=== PATIENT | female | born 1980 | race Caucasian/White ===

== ENCOUNTER 2025-06-15 12:14 | Outpatient (REF) | payer OTHER, SELFPAY ==
--- NOTE | ~2025-06-15 | XR_ITS ---
CLINICAL HISTORY: PAIN IN LEFT HIP 3 view, pelvis and left hip Comparison: None provided Findings: Postoperative changes of the Lumbosacral spine. Mild degenerative changes of both hips. The soft tissues are unremarkable. Phleboliths project over the pelvis. IMPRESSION: Mild degenerative changes of both hips. This document has been electronically signed by: Dedrick Beck DO on 06/15/2025 14:01:07
--- OUTSIDE RECORDS SUMMARY | 2025-06-15 12:19 | XMS_ITS ---
Author Name [facility] Organization Unknown History of Medication Use Medication Directions Dispensed Refills Start Date End Date Stat us baclofen (LIORESAL) 10 mg tablet Insert one tablet into the vagina every 8 hours as needed for pelvic floor muscle spasm. 02/08/2025 active DULoxetine (CYMBALTA) [address] capsule Take 1 capsule (20 mg total) by mouth 1 (one) time each day. 11/29/2024 active Zepbound 12.5 mg/0.5 mL injection 10/05/2024 active oxyCODONE (ROXICODONE) 5 mg immediate release tablet Take 1 tablet (5 mg total) by mouth every 6 (six) hours if needed. 08/05/2023 active albuterol HFA (PROAIR HFA ; PROVENTIL HFA ; VENTOLIN HFA) 90 mcg/actuation inhaler Inhale 2 Puffs into the lungs every 6 hours as needed for Cough or Wheezing. 10/10/2019 active acyclovir (ZOVIRAX) 400 mg tablet Take 1 Tab by mouth 3 times daily. 02/25/2019 active cyclobenzaprine (FLEXERIL) 5 mg tablet Take 1 tablet (5 mg total) by mouth 1 (one) time each day. active gabapentin (NEURONTIN) 600 mg tablet Take 1 tablet (600 mg total) by mouth 2 (two) times a day. active Allergies Allergen Reaction Severity Comment Documented Date Source Statu s GADOLINIUM-CONTAI KATHARINA CONTRAST MEDIA RUNNY NOSE Dotarem injected pt started sneezing and throat swelling//TR 09/01/2023 [facility] active PENICILLINS RASH 08/15/2019 [facility] active SUMATRIPTAN 07/19/2018 [facility] active CORTISONE ACETATE FLUSHING 09/13/2009 [facility] active PENICILLIN V POTASSIUM 10/27/2005 [facility] active CORTISONE Other Reaction(s): redness and burning face and chest [facility] Problems Problem Status Onset Date Problem Type Date of Resoluti on Source Anemia active 2024-09-05 ProblemAct [facility] Hyperglycemia active 2019-10-10 ProblemAct [facility] Heart murmur active 2018-09-05 ProblemAct [facility] Herpes simplex active 2005-11-05 ProblemAct [facility] Asthma active 2006-11-04 ProblemAct [facility] Vasomotor symptoms due to menopause active 2020-06-28 ProblemAct [facility] Knee pain active 2018-12-08 ProblemAct [facility] Irritable bowel syndrome active 2006-09-17 ProblemAct [facility] Essential thrombocytosis ([facility] V24, [facility] V28) active 2016-06-04 ProblemAct [facility] Bleeding diathesis ([facility] V24) active 2011-02-17 ProblemAct [facility] Migraine without aura active 2012-07-16 ProblemAct [facility] Depression with anxiety active 2008-05-07 ProblemAct [facility] DDD (degenerative disc disease), lumbar active 2017-01-26 ProblemAct [facility] Immunizations Vaccine Date Source Lot Number Status Influenza trivalent, 0.5mL, preservative free (Fluarix; FluLaval; Fluzone) ages 6mo and older (Afluria) 3 years and older 08/09/2013 [facility] [id number] completed Tdap Tetanus diptheria acell ular pertussis (Boostrix; Adacel) 7yo and older 05/07/2008 [facility] [id number] completed
== END 2025-06-15 12:15 | disposition home or self-care (01) ==
LOC: HO.XRAY 12:14
PROVIDERS: Visit Provider Psychiatry & Neurology Neurology
DX: M25.552 Pain in left hip (principal)
CPT/HCPCS: 73502

== ENCOUNTER → 2025-06-15 12:20 | Outpatient (BNV) | payer OTHER, SELFPAY | PROVIDERS: Visit Provider Family Medicine | DX: M16.12 Unilateral primary osteoarthritis, left hip (principal) | CPT/HCPCS: 73502 ==

== ENCOUNTER 2025-07-04 14:24 | Outpatient (REF) | payer OTHER, SELFPAY ==
[2025-07-04 15:33] LABS: Appearance Urine Clear; Glucose Urine UA Negative (Negative); PH 7.0 (5.0-9.0); Specific Gravity - Urine 1.010 (1.005-1.025)
--- OUTSIDE RECORDS SUMMARY | 2025-07-04 16:45 | XMS_ITS | Clinical Summary ---
Author Organization [facility] [address] [facility] Address [address] [place] [phone] Phone Care Team Providers Care Broom Maker Name Role Phone Kanchan Wellington MD Primary Care Provider [phone] Allergies Active Allergy Reactions Criticality Noted Date Comments Cortisone 08/15/2019 Other Reaction(s): redness and burning face and chest Cortisone Acetate Flushing Medium 09/13/2009 Gadolinium-Containing Contrast Media Numbness,Runny nose Medium 09/01/2023 Dotarem injected pt started sneezing and throat swelling//TR Penicillin V Potassium 10/27/2005 Penicillins Rash 08/15/2019 Sumatriptan 07/19/2018 Medications gabapentin (NEURONTIN) 600 mg tablet Take 1 tablet (600 mg total) by mouth 2 (two) times a day. Active oxyCODONE (ROXICODONE) 5 mg immediate release tablet Take 1 tablet (5 mg total) by mouth every 6 (six) hours if needed. 08/05/2023 Active albuterol HFA (PROAIR HFA ; PROVENTIL HFA ; VENTOLIN HFA) 90 mcg/actuation inhaler Inhale 2 Puffs into the lungs every 6 hours as needed for Cough or Wheezing. 10/10/2019 Active acyclovir (ZOVIRAX) 400 mg tablet Take 1 Tab by mouth 3 times daily. 02/25/2019 Active Zepbound 12.5 mg/0.5 mL injection 10/05/2024 Active cyclobenzaprine (FLEXERIL) 5 mg tablet Take 1 tablet (5 mg total) by mouth 1 (one) time each day. Active DULoxetine (CYMBALTA) [address] capsule Take 1 capsule (20 mg total) by mouth 1 (one) time each day. 11/29/2024 Active baclofen (LIORESAL) 10 mg tablet Insert one tablet into the vagina every 8 hours as needed for pelvic floor muscle spasm. 30 each 02/08/2025 Active Active Problems Problem Noted Date Diagnosed Date Anemia 09/05/2024 Vasomotor symptoms due to menopause 06/28/2020 Overview (09/05/2024): Last Assessment & Plan: Continue current patch dose. Can check estradiol level, but explained that there is a significant range of normal and may not be able to tell except that it is normal. Hyperglycemia 10/10/2019 Knee pain 12/08/2018 Heart murmur 09/05/2018 Overview (09/05/2024): found in high school DDD (degenerative disc disease), lumbar 01/27/20 17 Essential thrombocytosis ([facility] V24, [facility] V 28) 06/04/2016 Migraine without aura 07/16/2012 Bleeding diathesis ([facility] V24) 02/17/2011 Depression with anxiety 05/07/2008 Overview (09/05/2024): Last Assessment & Plan: I encouarged Robin to follow up with her psychiatrist and therapist as scheduled. She contracts for safety and currently denies SI, HI. Asthma 11/04/2006 Irritable bowel syndrome 09/17/2006 Herpes simplex 11/05/2005 Overview (09/05/2024): 2002 HSV of skin - on L wrist Encounters Date Type Department Care Team Description 04/14/2025 11:31 AM EDT - 04/14/2025 3:43 PM EDT Emergency [facility] Emergency [address] [place] [id number] Deborah Doyle DO Pyelonephritis (Primary Dx) Discharge Disposition: Home or Self Care 04/12/2025 8:30 AM EDT Treatment Pelvic Floor [address] [phone] Nargis Dalal, PT Pelvic pain (Primary Dx); Constipation, unspecified constipation type; Myalgia of pelvic floor; Muscle spasm; Muscle weakness from Last 3 Months Immunizations Name Administration Dates Next Due Influenza trivalent, 0.5mL, preservative free (Fluarix; FluLaval; Fluzone) ages 6mo and older (Afluria) 3 years and older 08/09/2013 Tdap Tetanus diptheria acell ular pertussis (Boostrix; Adacel) 7yo and older 05/07/2008 Surgical History Surgery Date Site/Laterality Comments VAGINAL DELIVERY PROCEDURE: OH VAGINAL DELIVERY ONLY; COMMENT: x3 CERVICAL BIOPSY W/ LOOP ELECTRODE EXCISION PROCEDURE: CERVIAL LEEP CONE BIOPSY SPCMN PATHOLOGY EX; COMMENT: x3; abnormal cells TUBAL LIGATION 2004 PROCEDURE: HISTORICAL TUBAL LIGATION NASAL SEPTUM SURGERY 1996 PROCEDURE: OH SEPTOPLASTY/SUBMUCOUS RESECJ W/WO CARTILAGE GRF COLONOSCOPY 05/26/2006 PROCEDURE: OH COLONOSCOPY FLX DX W/COLLJ SPEC WHEN PFRMD; COMMENT: Normal TONSILLECTOMY PROCEDURE: HISTORICAL TONSILLECTOMY CHOLECYSTECTOMY PROCEDURE: OH LAPAROSCOPY SURG CHOLECYSTECTOMY HYSTERECTOMY Medical History Medical History Date Comments Placenta previa without hemo rrhage, unspecified as to episode of care 01-15-05 DX:Placenta previa w ithout hemorrhage, unspecified as to episode of care; COMMENT: 14 week u/s Anxiety state, unspecified 04/19/2006 DX:An xiety state, unspecified Irritable bowel syndrome 2005 DX:Irri table bowel syndrome; COMMENT: diagnosed at time of colonoscopy Herpes simplex 11/05/2005 DX:Herpes simple x; COMMENT: 2002 HSV of skin - on L wrist History of herpes zoster 04/15/2015 DX:Hist ory of herpes zoster Heart murmur 09/05/2018 DX:Heart murmur; COMMENT: found in high school DDD (degenerative disc disea se), lumbar 01/26/2017 DX:DDD (degenerative disc di sease), lumbar Asthma 11/04/2006 DX:Asthma Depression with anxiety 05/07/2008 DX:Depre ssion with anxiety Anemia DX:Anemia History of GI bleed 05/26/2006 DX:History o f GI bleed; COMMENT: chronic small volume hematochezia. History of anal fissures. Negative colonoscopy 05.26.06. Essential thrombocytosis (CM S/HCC V24, CMS/HCC V28) 06/04/2016 DX:Essential thrombocytosis (HCC) Family History Medical History Relation Name Comments Ovarian cancer Aunt Coronary artery disease Brother 1 Coronary artery disease Maternal Grandfather Hypertension Maternal Grandfather Other cancer Maternal Grandfather skin ca ncer Colon cancer Maternal Grandmother Colon polyps Mother dx age late 50' s Kidney cancer Mother age 60 Other cancer Paternal Grandmother Breast cancer Neg Hx Relation Name Status Comments Aunt Alive Brother 1 HTN Brother 2 Alive estranged Daughter 1 Alive x3; 2 with asth ma Daughter 2 Alive Daughter 3 Alive Father Alive HTN Maternal Grandfather (Age 85) CA D; AMI; CABG x 4 Maternal Grandmother Colon C A - found at 88yo Mother Alive HTN; hyperchole sterolemia, kidney cancer 2010 age 60 Paternal Grandfather unknown Paternal Grandmother unknown Social History Tobacco Use Types Packs/Day Years Used Date Smoking Tobacco: Former Cigarettes 0.5 26.6 0 11/01/1992 - 2019 Smokeless Tobacco: Never Tobacco Cessation:Counseling Given: Not Answered Alcohol Use Standard Drinks/Week Comments Yes 0 (1 standard drink = 0.6 oz pur e alcohol) rare Comments No Sex and Gender Information Value Date Recorded Sex Assigned at Not on file Legal Sex Female 9:59 AM EST Gender Identity Not on file Sexual Orientation Not on file Obstetrics History * This document contains information received from the source organization and may not represent a complete record from that organization. Para Term AB IAB SAB Ectopic Multiple Livin g Live Births 4 0 0 0 0 0 3 3 Date Outcome GA Total Labor Labor/2nd/3rd Weight Sex Type Anes PTL Nicolle A1 A5 Name Clin 1999 40w 0d 3345 g (118 oz) F Vag-S pont Livin g Yoanna [facility] Delivery Location:[facility] 2003 40w 0d 3487 g (123 oz) F Vag-S pont Livin g Laurel [facility] Delivery Location:[facility] 2004 40w 0d 3799 g (134 oz) F Vag-S pont Livin g Mikayl a Dr[facility] Delivery Location:[facility] Last Filed Vital Signs Vital Sign Reading Time Taken Comments Blood Pressure 130/77 04/14/2025 3:05 PM EDT Pulse 70 04/14/2025 3:05 PM EDT Temperature 36.9 C (98.4 F) 04/14/2025 3:05 PM EDT Respiratory Rate 16 04/14/2025 3:05 PM EDT Oxygen Saturation 100% 04/14/2025 3:05 PM EDT Inhaled Oxygen Concentration - - Weight 57.6 kg (127 lb) 04/14/2025 11:28 AM EDT Height 154.9 cm (5' 1 ) 04/14/2025 11:28 AM EDT Body Mass Index 24 04/14/2025 11:28 AM EDT Plan of Treatment Health Maintenance Due Date Last Done Comments COVID-19 Vaccine (3 - Pfizer risk series) 04/27/2021 03/30/2021, 02/17/2021 Pneumococcal Vaccine: Pediatrics (0 to 5 Years) and At-Risk Patients (6 to 49 Years) (2 of 2 - PCV) 07/03/2021 07/03/2020, 08/10/2016 Colorectal Cancer Screening: Colonoscopy 10/10/2022 Medicare Annual Wellness Visit 10/10/2022 Social Influencers of Health Screening 10/10/2022 Hepatitis B Vaccines (2 of 3 - 19+ 3-dose series) 09/13/2024 08/16/2024 Depression Screening 11/01/2024 Influenza Vaccine (#1) 2025 4, 07/03/2020, 08/10/2016, Additional history exists Breast Cancer Screening 04/25/2026 04/25/20 24, 04/20/2023, 04/15/2022, Additional history exists Cervical Cancer Screening: HPV 12/11/2029 12/11/2024, 11/30/2019 DTaP,Tdap,and Td Vaccines (3 - Td or Tdap) 07/03/2030 07/03/2020, 05/07/2008 HIV Screening Completed 11/30/2019 Hepatitis C Screening Completed 11/30/2019 MMR Vaccines Aged Out 08/16/2024 No longer eligi ble based on patient's age to complete this topic HIB Vaccines Aged Out No longer eligi ble based on patient's age to complete this topic HPV Vaccines Aged Out No longer eligi ble based on patient's age to complete this topic Hepatitis A Vaccines Aged Out No long er eligible based on patient's age to complete this topic IPV Vaccines Aged Out No longer eligi ble based on patient's age to complete this topic Meningococcal ACWY Vaccine Aged Out N o longer eligible based on patient's age to complete this topic Meningococcal B Vaccine Aged Out No l onger eligible based on patient's age to complete this topic RSV Immunization Patients Under 20 months Aged Out No longer eligible based on patient's age to complete this topic Varicella Vaccines Aged Out No longer eligible based on patient's age to complete this topic Procedures Procedure Name Priority Date/Time Associated Diagnosis Comments CT ABDOMEN PELVIS WO CONTRAST STAT 04/14/2025 12:44 PM EDT POC , URINE DIAGNOSTIC STAT 04/14/2025 12:01 PM EDT JACINTO URINE CULTURE TUBE STAT 04/14/2025 11:48 AM EDT URINALYSIS WITH REFLEX MICROSCOPIC AND CULTURE STAT 04/14/2025 11:48 AM EDT URINALYSIS WITH REFLEX MICROSCOPIC AND CULTURE STAT 04/14/2025 11:48 AM EDT CULTURE URINE STAT 04/14/2025 11:48 AM EDT CBC WITH AUTO DIFFERENTIAL STAT 04/14/2025 11:44 AM EDT COMPREHENSIVE METABOLIC PANEL STAT 04/14/2025 11:44 AM EDT CBC AND DIFFERENTIAL STAT 04/14/2025 11:44 AM EDT HPV WITH REFLEX GENOTYPE Routine 12/11/2024 11:18 AM EST Screening for cervical cancer JUANCHO SCREENING DIGITAL Routine 04/25/2024 5:06 PM EDT Encounter for screening mammogram for malignant neoplasm of breast HEPATITIS C SCREENING Routine 11/30/2019 HIV SCREENING Routine 11/30/2019 from Last 3 Months or Most Recently Relevant to Health Maintenance Results * CT Abdomen Pelvis wo Contrast (04/14/2025 12:44 PM EDT) Anatomical Region Laterality Modality Body Computed Tomogra phy 04/14/2025 12:5 9 PM EDT Impressions 04/14/2025 1:06 PM EDT Limited evaluation absence of IV contrast. No acute infectious or inflammatory process. No nephroureteral calculus. Circumferential thickening of the bladder, correlate with urinalysis. -------- FINAL REPORT -------- Dictated By: Fabio Stoll Dictated Date: 04/14/2025 12:59 ET Assigned Physician: Fabio Stoll Reviewed and Electronically Signed By: Fabio Stoll Signed Date: 04/14/2025 13:06 ET Workstation ID: [id number] Transcribed By: Self Edit Transcribed Date: 04/14/2025 12:59 ET Narrative 04/14/2025 1:06 PM EDT PROCEDURE: CT Abdomen and Pelvis without contrast INDICATION: Flank pain, kidney stone suspected left sided flank pain TECHNIQUE: CT of the abdomen and pelvis without contrast. Multiplanar reformats. The examination was performed utilizing dose reduction techniques. DLP: 481 mGy/cm COMPARISON: 11/12/2023 FINDINGS: LOWER THORAX: Lung bases are clear. HEPATOBILIARY: No focal liver lesions. Cholecystectomy. SPLEEN: No splenomegaly. PANCREAS: No focal mass or ductal dilatation. ADRENALS: No nodules. KIDNEYS/URETERS: No hydronephrosis, stones, or solid mass. PELVIC ORGANS/BLADDER: Circumferential thickening of bladder nonspecific but could be related to cystitis. Hysterectomy. PERITONEUM / RETROPERITONEUM: No ascites or free air. No retroperitoneal lymphadenopathy. VESSELS: Scattered atherosclerotic calcifications throughout the aorta and its major branches. No aneurysm. GI TRACT: No bowel distention or wall thickening. Normal appendix. BONES AND SOFT TISSUES: Surgical changes of the lumbar spine. No acute fractures. Soft tissues are unremarkable. Procedure Note Fabio Stoll MD - 06/14/2025 PROCEDURE: CT Abdomen and Pelvis without contrast INDICATION: Flank pain, kidney stone suspected left sided flank pain TECHNIQUE: CT of the abdomen and pelvis without contrast. Multiplanarreformats. The examination was performed utilizing dose reductiontechniques. DLP: 481 mGy/cm COMPARISON: 11/12/2023 FINDINGS: LOWER THORAX: Lung bases are clear. HEPATOBILIARY: No focal liver lesions. Cholecystectomy. SPLEEN: No splenomegaly. PANCREAS: No focal mass or ductal dilatation. ADRENALS: No nodules. KIDNEYS/URETERS: No hydronephrosis, stones, or solid mass. PELVIC ORGANS/BLADDER: Circumferential thickening of bladder nonspecificbut could be related to cystitis. Hysterectomy. PERITONEUM / RETROPERITONEUM: No ascites or free air. No retroperitoneallymphadenopathy. VESSELS: Scattered atherosclerotic calcifications throughout the aorta andits major branches. No aneurysm. GI TRACT: No bowel distention or wall thickening. Normal appendix. BONES AND SOFT TISSUES: Surgical changes of the lumbar spine. No acutefractures. Soft tissues are unremarkable. IMPRESSION: Limited evaluation absence of IV contrast. No acute infectious orinflammatory process. No nephroureteral calculus. Circumferential thickening of the bladder, correlate with urinalysis. -------- FINAL REPORT -------- Dictated By: Fabio Stoll Dictated Date: 04/14/2025 12:59 ET Assigned Physician: Fabio Stoll Reviewed and Electronically Signed By: Fabio Stoll Signed Date: 04/14/2025 13:06 ET Workstation ID: [id number] Transcribed By: Self Edit Transcribed Date: 04/14/2025 12:59 ET us Deborah Doyle DO IMG CT PROCEDURES Final R esult * POC , urine manually resulted (04/14/2025 12:01 PM EDT) HCG, Ur POC Negative Negative POC hCG Int QC Pass? Yes Yes Urine Urine specimen obtained by clean catch procedure / Unknown 04/14/2025 12:01 PM EDT us Deborah Doyle DO POINT OF CARE TEST ENTER/ EDIT ORDERABLES Final Result * (ABNORMAL) Urinalysis with reflex microscopic and culture (04/14/2025 11:48 AM EDT) Specific [place] Urine 1.023 1.003 - 1.030 LAB URINALYSIS - AUTOMATED METHOD 04/14/2025 1:23 PM [facility] pH, Urine 6.0 5.0 - 8.0 pH LAB URINALYSIS - AUTOMATED METHOD 04/14/2025 1:23 PM [facility] Leukocytes, Urine Large(A) Negative LAB URINALYSIS - AUTOMATED METHOD 04/14/2025 1:23 PM [facility] Nitrite, Urine Negative Negative LAB URINALYSIS - AUTOMATED METHOD 04/14/2025 1:23 PM [facility] Protein, Urine 300(A) <=Trace mg/dL LAB URINALYSIS - AUTOMATED METHOD 04/14/2025 1:23 PM [facility] Glucose, Urine Negative Negative mg/dL LAB URINALYSIS - AUTOMATED METHOD 04/14/2025 1:23 PM [facility] Ketones, Urine >=80(A) Negative mg/dL LAB URINALYSIS - AUTOMATED METHOD 04/14/2025 1:23 PM [facility] Urobilinogen , Urine 1.0 0.2 - 1.0 mg/dL LAB URINALYSIS - AUTOMATED METHOD 04/14/2025 1:23 PM [facility] Bilirubin, Urine Small(A) Negative LAB URINALYSIS - AUTOMATED METHOD 04/14/2025 1:23 PM [facility] Blood, Urine Large(A) Negative LAB URINALYSIS - AUTOMATED METHOD 04/14/2025 1:23 PM [facility] RBC, Urine 3,319.1(H) 0 - 4 /HPF LAB URINALYSIS - AUTOMATED METHOD 04/14/2025 1:23 PM [facility] WBC, Urine 2,350.2(H) 0 - 4 /HPF LAB URINALYSIS - AUTOMATED METHOD 04/14/2025 1:23 PM EDT [facility] Squamous Epithelial, Urine 88(H) 0 - 60 /LPF LAB URINALYSIS - AUTOMATED METHOD 04/14/2025 1:23 PM EDT [facility] Non-Squamous Epithelial, Urine 2-5 TRANSITIONAL EPI /LPF LAB URINALYSIS - AUTOMATED METHOD 04/14/2025 1:23 PM EDT [facility] Bacteria, Urine Few(A) Negative /HPF LAB URINALYSIS - AUTOMATED METHOD 04/14/2025 1:23 PM EDT [facility] Hyaline Casts, Urine 3.0 0 - 3 /LPF LAB URINALYSIS - AUTOMATED METHOD 04/14/2025 1:23 PM EDT [facility] Urine Urine specimen obtained by clean catch procedure / Unknown Non-blood Collection / Unknown 04/14/2025 11:48 AM EDT 04/14/2025 12:37 PM EDT us [employer] Tommy Wenceslao [employer] [facility] URINE ORDERABLES Yessy l Result Performing Organization Address [facility]/ZIP Co de Phone Number [facility] [address] [place] [address], [place] [phone] * Jacinto urine culture tube (04/14/2025 11:48 AM EDT) Extra Tube Hold for add-ons. 04/14/2025 2:01 PM EDT [facility] Comment:Auto resulted. Urine Urine specimen obtained by clean catch procedure / Unknown Non-blood Collection / Unknown 04/14/2025 11:48 AM EDT 04/14/2025 12:37 PM EDT us [employer] Tommy Wenceslao [facility] URINE ORDERABLES Yessy l Result Performing Organization Address [facility]/ZIP Co de Phone Number [facility] [address] [place] [address], [place] [phone] * (ABNORMAL) Culture urine (04/14/2025 11:48 AM EDT) Pathologist [facility] Culture, Urine >100,000 CFU/mL Escherichia coli(A) JAIME 04/16/2025 10:11 AM EDT [facility] Urine Urine specimen obtained by clean catch procedure / Unknown Non-blood Collection / Unknown 04/14/2025 11:48 AM EDT 04/14/2025 1:23 PM EDT Narrative Organism Antibiotic Method Susceptibility Escherichia coli Amoxicillin/Clavulanate JAIME <=2 ug/ml: Susceptible Escherichia coli Ampicillin/Sulbactam JAIME <=2 ug/ml: Susceptible Escherichia coli Piperacillin/Tazobactam JAIME <=4 ug/ml: Susceptible Escherichia coli Cefazolin (Urine) JAIME 4 ug/ml: Susceptible Escherichia coli Cefoxitin JAIME <=4 ug/ml: Susceptible Escherichia coli Ceftazidime JAIME <=0.5 ug/ml: Susceptible Escherichia coli Ceftriaxone JAIME <=0.25 ug/ml: Susceptible Escherichia coli Cefepime JAIME <=0.12 ug/ml: Susceptible Escherichia coli Meropenem JAIME <=0.25 ug/ml: Susceptible Escherichia coli Amikacin JAIME 2 ug/ml: Susceptible Escherichia coli Gentamicin JAIME <=1 ug/ml: Susceptible Escherichia coli Ciprofloxacin JAIME <=0.06 ug/ml: Susceptible Escherichia coli Levofloxacin JAIME <=0.12 ug/ml: Susceptible Escherichia coli Nitrofurantoin JAIME <=16 ug/ml: Susceptible Escherichia coli Trimethoprim/Sulfamethoxazole JAIME <=20 ug/ml: Susceptible us Deborah Doyle DO LAB MICROBIOLOGY - GENERA L ORDERABLES Final Result [facility] [address] [place] [address], [place] [phone] * (ABNORMAL) CBC auto differential (04/14/2025 11:44 AM EDT) WBC 10.4 4.8 - 10.8 K/mcL LAB HEMETOLOGY METHOD 04/14/2025 12:41 PM [facility] RBC 4.00 3.80 - 4.80 M/mcL LAB HEMETOLOGY METHOD 04/14/2025 12:41 PM [facility] Hemoglobin 12.2 11.5 - 16.0 g/dL LAB HEMETOLOGY METHOD 04/14/2025 12:41 PM [facility] Hematocrit 36.5 35.0 - 47.0 % LAB HEMETOLOGY METHOD 04/14/2025 12:41 PM [facility] MCV 91.3 79.0 - 98.0 FL LAB HEMETOLOGY METHOD 04/14/2025 12:41 PM [facility] MCH 30.5 27.0 - 32.0 pcg LAB HEMETOLOGY METHOD 04/14/2025 12:41 PM [facility] MCHC 33.4 32.0 - 37.0 g/dL LAB HEMETOLOGY METHOD 04/14/2025 12:41 PM [facility] RDW 12.2 11.0 - 15.0 % LAB HEMETOLOGY METHOD 04/14/2025 12:41 PM [facility] Platelets 330 130 - 400 K/mcL LAB HEMETOLOGY METHOD 04/14/2025 12:41 PM [facility] MPV 10.6 7.0 - 11.0 FL LAB HEMETOLOGY METHOD 04/14/2025 12:41 PM [facility] NRBC 0.0 <1.0 % LAB HEMETOLOGY METHOD 04/14/2025 12:41 PM [facility] NRBC Absolute 0.00 <0.10 K/mcL LAB HEMETOLOGY METHOD 04/14/2025 12:41 PM [facility] Neutrophils Relative 79.5 % LAB HEMETOLOGY METHOD 04/14/2025 12:41 PM [facility] Lymphocytes Relative 15.2 % LAB HEMETOLOGY METHOD 04/14/2025 12:41 PM [facility] Monocytes Relative 4.4 % LAB HEMETOLOGY METHOD 04/14/2025 12:41 PM [facility] Eosinophils Relative 0.2 % LAB HEMETOLOGY METHOD 04/14/2025 12:41 PM [facility] Basophils Relative 0.4 % LAB HEMETOLOGY METHOD 04/14/2025 12:41 PM [facility] Immature Granulocytes Relative 0.3 % LAB HEMETOLOGY METHOD 04/14/2025 12:41 PM [facility] Neutrophils Absolute 8.29(H) 1.50 - 7.00 K/mcL LAB HEMETOLOGY METHOD 04/14/2025 12:41 PM [facility] Lymphocytes Absolute 1.58 1.00 - 5.00 K/mcL LAB HEMETOLOGY METHOD 04/14/2025 12:41 PM [facility] Monocytes Absolute 0.46 0.20 - 1.00 K/mcL LAB HEMETOLOGY METHOD 04/14/2025 12:41 PM [facility] Eosinophils Absolute 0.02 0.00 - 0.50 K/mcL LAB HEMETOLOGY METHOD 04/14/2025 12:41 PM [facility] Basophils Absolute 0.04 0.00 - 0.20 K/mcL LAB HEMETOLOGY METHOD 04/14/2025 12:41 PM [facility] Immature Granulocytes Absolute 0.03 0.00 - 0.03 K/mcL LAB HEMETOLOGY METHOD 04/14/2025 12:41 PM [facility] Blood Venous blood specimen / Unknown Venipuncture / Unknown 04/14/2025 11:44 AM EDT 04/14/2025 12:36 PM EDT us Deborah Doyle DO LAB BLOOD ORDERABLES Yessy l Result [facility] [address] [place] [address], * Comprehensive metabolic panel (04/14/2025 11:44 AM EDT) Sodium 137 133 - 145 mmol/L LAB CHEMISTRY METHOD 04/14/2025 1:00 PM T [facility] Potassium 3.7 3.5 - 5.5 mmol/L LAB CHEMISTRY METHOD 04/14/2025 1:00 PM [facility] Chloride 105 96 - 110 mmol/L LAB CHEMISTRY METHOD 04/14/2025 1:00 PM [facility] CO2 24 21 - 32 mmol/L LAB CHEMISTRY METHOD 04/14/2025 1:00 PM [facility] Anion Gap 8 3 - 11 LAB CHEMISTRY METHOD 04/14/2025 1:00 PM [facility] Glucose 86 70 - 100 mg/dL LAB CHEMISTRY METHOD 04/14/2025 1:00 PM [facility] BUN 9 5 - 25 mg/dL LAB CHEMISTRY METHOD 04/14/2025 1:00 PM [facility] Creatinine 0.59 0.50 - 1.10 mg/dL LAB CHEMISTRY METHOD 04/14/2025 1:00 PM [facility] eGFR 113 >=60 mL/min/1. 73m2 LAB CHEMISTRY METHOD 04/14/2025 1:00 PM [facility] Comment:Calculation based on the Chronic Kidney Disease Epidemiology Collaboration (CKD-EPI) equation refit without adjustment for race. BUN/Creatinine Ratio 15.3 LAB CHEMISTRY METHOD 04/14/2025 1:00 PM [facility] Calcium 9.8 8.5 - 10.5 mg/dL LAB CHEMISTRY METHOD 04/14/2025 1:00 PM EDT [facility] AST (SGOT) 15 10 - 42 unit/L LAB CHEMISTRY METHOD 04/14/2025 1:00 PM [facility] ALT (SGPT) 17 10 - 60 unit/L LAB CHEMISTRY METHOD 04/14/2025 1:00 PM EDT [facility] Alkaline Phosphatase 62 42 - 121 unit/L LAB CHEMISTRY METHOD 04/14/2025 1:00 PM EDT [facility] Total Protein 7.1 6.0 - 8.0 g/dL LAB CHEMISTRY METHOD 04/14/2025 1:00 PM EDT [facility] Albumin 4.6 3.2 - 5.0 g/dL LAB CHEMISTRY METHOD 04/14/2025 1:00 PM [facility] Total Bilirubin 0.8 0.0 - 1.4 mg/dL LAB CHEMISTRY METHOD 04/14/2025 1:00 PM EDT [facility] Blood Venous blood specimen / Unknown Venipuncture / Unknown 04/14/2025 11:44 AM EDT 04/14/2025 12:36 PM EDT Deborah Doyle DO LAB BLOOD ORDERABLES Yessy l Result [facility] [address] [place] [address], * HPV with reflex genotype (12/11/2024 11:18 AM EST) HPV Negative Negative LAB MICROBIOLOGY METHOD 12/12/2024 3:50 PM EST [facility] Brushing/Spatula Cervix uteri structure / Unknown 12/11/2024 11:18 AM EST 12/12/2024 6:15 AM EST Ruby Arriaga MD LAB MOLECULAR DIAGNOSTICS O RDERABLES Final Result [facility] ([facility] HOSPITAL LAB [address] [place] [address], * JUANCHO SCREENING DIGITAL (04/25/2024 5:06 PM EDT) Anatomical Region Laterality Modality Mammography 04/25/2024 2:39 PM EDT Narrative 04/25/2024 5:06 PM EDT [facility] Diagnostic Imaging Department [address] [place] [address] Patient: ROBIN MCGOWAN D.O.B./Age/Sex: 1980 - 43 - F Unit#: [id number] Location/Status: [facility] CLI Mnemonic/Ordering Site: [facility] Ordering Physician: KANCHAN WELLINGTON MD [facility] Screening Digital - 04/25/24 - 1507 Report Status:Signed EXAM: Juancho Screening Digital EXAM DATE AND TIME: 04/25/2024 3:08 PM HISTORY: Screening. COMPARISON: 04/19/23, 04/15/22, 11/25/20 TECHNIQUE: Bilateral digital breast tomosynthesis was performed in the CC and MLO projections. Computer aided detection with [employer] 3D 3.1 was employed. TISSUE DENSITY: a. The breasts are almost entirely fatty. FINDINGS: No suspicious masses, grouped microcalcifications, or areas of architectural distortion are seen. A 5 mm circumscribed nodule in the anterior right breast remains stable, considered benign. Skin calcifications are again seen in the left breast. The vascularity is unremarkable. IMPRESSION: Stable mammographic appearance of the breasts. No evidence of malignancy is seen. A negative mammogram in the presence of a clinically suspicious palpable abnormality does not preclude the possibility of malignancy or alter the indications for biopsy. BI-RADS: Category 2: Benign RECOMMENDATION(S): 1: Routine screening mammogram BILATERAL in 1 year. Dictating Physician: AGATHA XAVIER MD Electronically Signed by: AGATHA XAVIER MD Dic Date/Time: 04/25/241704 Sign date/Time: 04/25/241705 Procedure Note Agatha Xavier MD - 08/16/2024 [facility] Diagnostic Imaging Department [address] [place] [address] Patient: JUAN MROBIN /Age/Sex: 1980 - 43 - F Unit#: [id number] Location/Status: [facility] Mnemonic/Ordering Site: [facility] Ordering Physician: KANCHAN WELLINGTON MD [facility] Screening Digital - 04/25/24 - 1501 Report Status:Signed EXAM: [facility] Screening Digital EXAM DATE AND TIME: 04/25/2024 3:08 PM HISTORY: Screening. COMPARISON: 04/19/23, 04/15/22, 11/25/20 TECHNIQUE: [facility] Computer aided detection with [employer] 3D 3.1was employed. TISSUE DENSITY: a. The breasts are almost entirely fatty. FINDINGS: No suspicious masses, grouped microcalcifications, or areas ofarchitectural distortion are seen. A 5 mm circumscribed nodule in the anterior rightbreast remains stable, considered benign. Skin calcifications are again seen inthe left breast. The vascularity is unremarkable. IMPRESSION: Stable mammographic appearance of the breasts. No evidence of malignancyis seen. A negative mammogram in the presence of a clinically suspicious palpable abnormality does not preclude the possibility of malignancy or alter the indications for biopsy. BI-RADS: Category 2: Benign RECOMMENDATION(S): 1: Routine screening mammogram BILATERAL in 1 year. Dictating Physician: AGATHA XAVIER MD Electronically Signed by: AGATHA XAVIER MD Dic Date/Time: 04/25/241704 Sign date/Time: 04/25/241705 Result [facility] Kanchan Wellington MD IMG BI PROCEDURES Final Res ult * HIV Screening (11/30/2019) HIV Screening Abstracted Historical Provider HEALTH MAINTENANCE Final Result * Hepatitis C Screening (11/30/2019) Hepatitis C Screening Abstracted Historical Provider HEALTH MAINTENANCE Final Result from Last 3 Months or Most Recently Relevant to Health Maintenance Insurance [facility] MEDICARE Member Subscriber Plan / Payer (Ef fective 2019-Present) Name:ROBIN MCGOWAN Relation to Subscriber:Self Name:Robin Mcgowan Payer ID:[id number] Group ID:[id number] Type:Not on file Address: [facility] [address] [id number] Advance Directives Documents on File Type Date Recorded Patient Tow Operator Expl anation Health Care Decision (hx) 11/12/2023 HE ALTH CARE PROXY Health Care Decision (hx) 11/12/2023 HE ALTH CARE PROXY Care Teams Broom Maker Relationship Specialty Start Date End Date Kanchan Wellington MD [address] [place] [id number] PCP - General Internal Medicine 10/08/24
--- OUTSIDE RECORDS SUMMARY | 2025-07-04 16:45 | XMS_ITS | Clinical Summary ---
Author Organization [facility] Address [address] [place] [address] Care Team Providers Care Pattern Drum Maker Name Role Phone Kanchan Wellington MD Primary Care Provider [phone] Allergies Active Allergy Reactions Criticality Noted Date Comments Cortisone 08/15/2019 Sumatriptan 08/15/2019 Penicillins 08/15/2019 Medications Medication Sig Dispensed Refills Start Date End Date Status topiramate (TOPAMAX) 100 MG tablet Take 1 tablet (100 mg total) by mouth 2 (two) times a day. 0 Active esterified estrogens (MENEST) 0.3 MG tablet Take 0.3 mg by mouth every morning with breakfast. 0 Active ibuprofen (ADVIL,MOTRIN) 800 MG tablet Take 800 mg by mouth every 8 (eight) hours as needed for pain. 0 Active buprenorphine-naloxon e (SUBOXONE) 8-[address] tablet [address] 1 tablet under the tongue daily. 0 Active buPROPion (WELLBUTRIN XL) 150 MG 24 hr tablet Take 150 mg by mouth daily. 0 Active gabapentin (NEURONTIN) 300 MG capsule TAKE 1 CAPSULE BY MOUTH AT BEDTIME X 5 DAYS THEN 2 CAPSULES AT BEDTIME X 5 DAYS. THEN INCREASE TO 3 CAPSULES BY MOUTH AT BEDTIME. 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6 oz pur e alcohol) Sex and Gender Information Value Date Recorded Sex Assigned at Not on file Gender Identity Not on file Sexual Orientation Not on file Job Start Date Occupation Industry Not on file Not on file Not on file Last Filed Vital Signs Vital Sign Reading Time Taken Comments Blood Pressure 152/67 10/01/2023 3:53 PM EST Pulse 69 10/01/2023 3:53 PM EST Temperature 36.3 C (97.4 F) 10/01/2023 3:53 PM EST Respiratory Rate - - Oxygen Saturation 99% 10/01/2023 3:53 PM EST Inhaled Oxygen Concentration - - Weight 80.2 kg (176 lb 12.8 oz) 10/01/2023 3:53 PM EST Height 156.2 cm (5' 1.5 ) 03/04/2021 11 :27 AM EDT Body Mass Index 32.87 03/04/2021 11:27 AM EDT Plan of Treatment Health Maintenance Due Date Last Done Comments Hepatitis B Vaccines (1 of 3 - 3-dose series) 1980 Hepatitis C Screening 1980 COVID-19 Vaccine (#1) 1980 Pneumococcal Vaccine (1 of 2 - PCV) 1985 Depression Screening 1991 Preventative Health Evaluation 1997 Cervical Cancer Screening (P ap Smear) 2000 DTap / Tdap / Td (2 - Td or Tdap) 05/07/2018 008 Colon Cancer Screening (Colonoscopy) 2024 Influenza Vaccine (#1) 2025 RSV Ped < 20 months Aged Out No longe r eligible based on patient's age to complete this topic Care Teams Pattern Drum Maker Relationship Specialty Start Date End Date Kanchan Wellington MD [address] [place] [address] PCP - General Family Medicine 07/07/19
== END 2025-07-04 14:25 | disposition home or self-care (01) ==
LOC: HO.LAB 14:24
PROVIDERS: PCP Family Medicine; Visit Provider Family Medicine
DX: R33.9 Retention of urine, unspecified (principal)
CPT/HCPCS: 81003

== ENCOUNTER 2025-09-21 | Outpatient (REF) | payer OTHER, SELFPAY ==
--- NOTE | ~2025-09-21 | XR_ITS ---
EXAMINATION: XR THORACIC SPINE CLINICAL INFORMATION: PAIN IN THORACIC COMPARISON: None available. TECHNIQUE: 3 views of the thoracic spine were obtained. FINDINGS: Minimal dextrocurvature of the thoracic spine. No subluxation. Vertebral body heights and disc spaces are preserved. Small marginal osteophytes at multiple levels. No obvious paraspinal soft tissue mass. XR/XR thoracic spine 3V IMPRESSION: Mild degenerative changes throughout the thoracic spine. Electronically signed by: Robi Osuna MD 09/21/2025 12:53 PM [facility]
--- OUTSIDE RECORDS SUMMARY | 2025-11-22 09:42 | XMS_ITS | Encounter Summary ---
Author Organization [facility] [employer] [facility] Prior to 09/01/2024 Address [address] [place] [address] Care Team Providers Care Director Medical Name Role Phone Naun Holt MD Primary Care Provider [phone] Anika, Pcp Primary Care Provider Kanchan Hughes MD Primary Care Provider Gentry Ayala MD Unavailable Un available Encounter Details Date Type Department Care Team Description 01/20/2012 Embossing Tool Setter Report Medical Records [address] [place] [address] Joaquim Brizuela MD Social History Tobacco Use Types Packs/Day Years Used Date Smoking Tobacco: Every Day Cigarettes 10 Smokeless Tobacco: Never Comments:smokes 5-8 cigs angela ly Alcohol Use Standard Drinks/Week Comments Yes 0 (1 standard drink = 0.6 oz pur e alcohol) occassionally Alcohol Habits Answer Date Recorded How often do you have a drink containing alcohol ? Monthly or less 11/30/2019 How many drinks containing a lcohol do you have on a typical day when you are drinking? Not asked How often do you have six or more drinks on one occasion? Not asked Sex Assigned at Date Recorded Not on file Job Start Date Occupation Industry Not on file Not on file Not on file documented as of this encounter Plan of Treatment Not on file documented as of this encounter Visit Diagnoses Not on filedocumented in this encounter Care Teams Director Medical Relationship Specialty Start Date End Date Naun Holt MD [address] [place] [address] PCP - General 04/24/11 02/22/13 [facility], Pcp [address] [place] [address] PCP - General Internal Medicine 02/23/13 08/28/18 Kanchan Wellington MD [address] [place] [address] PCP - General Internal Medicine 08/29/18 Millicent-Gentry Rehman MD [address] [place] [address] Specialist Internal Medicine 10/12/23 documented as of this encounter
--- OUTSIDE RECORDS SUMMARY | 2025-11-22 09:42 | XMS_ITS | Encounter Summary ---
Author Organization [facility] [employer] [facility] Prior to 09/01/2024 Address [address] [place] [address] Care Team Providers Care Floor Covering Contractor Name Role Phone Kanchan Wellington MD Primary Care Provider Gentry Ayala MD Unavailable Un available Encounter Details Date Type Department Care Team Description 09/13/2018 Transfer Records Medical Records [address] [place] [address] Abstract, Provider Social History Tobacco Use Types Packs/Day Years Used Date Smoking Tobacco: Every Day Cigars Smokeless Tobacco: Never Comments:smokes 1-2 cigars d aily Alcohol Use Standard Drinks/Week Comments No 0 [...] on filedocumented in this encounter Care Teams Floor Covering Contractor Relationship Specialty Start Date End Date Kanchan Wellington MD PCP - General Internal Medicine 08/29/18 Gentry Robles MD Specialist Internal Medicine 10/12/23 documented as of this encounter
--- OUTSIDE RECORDS SUMMARY | 2025-11-22 09:42 | XMS_ITS | Encounter Summary ---
Author Organization [facility] [employer] [facility] Prior to 09/01/2024 Address [address] [place] [address] Care Team Providers Care Label Drier Name Role Phone Kanchan Wellington MD Primary Care Provider Gentry Ayala MD Unavailable Un available Encounter Details Date Type Department Care Team Description 04/08/2021 Parliamentary Counsel Report Medical Records [address] [place] [address] Janes Uribe MD Social History Tobacco Use Types Packs/Day Years Used Date Smoking Tobacco: Former Cigarettes 0.5 25 1 993 - 2019 Cigars Smokeless Tobacco: Never Comments:1 cigar daily Alcohol Use Standard Drinks/Week Comments Yes 0 [...] on filedocumented in this encounter Care Teams Label Drier Relationship Specialty Start Date End Date Kanchan Wellington MD PCP - General Internal Medicine 08/29/18 Gentry Robles MD Specialist Internal Medicine 10/12/23 documented as of this encounter
--- OUTSIDE RECORDS SUMMARY | 2025-11-22 09:42 | XMS_ITS | Encounter Summary ---
Author Organization [facility] [employer] [facility] Prior to 09/01/2024 Address [address] [place] [address] Care Team Providers Care Ticket Taker Name Role Phone Kanchan Wellington MD Primary Care Provider Gentry Ayala MD Unavailable Un available Encounter Details Date Type Department Care Team Description 01/11/2020 Transfer Records Medical Records [address] [place] [address] Abstract, Provider Social History Tobacco Use Types Packs/Day Years Used Date Smoking Tobacco: Every Day Cigarettes 0.5 25 Started: 1992; Last attempted to quit: 2019 Cigars Smokeless Tobacco: Never Comments:1 cigar [...] on filedocumented in this encounter Care Teams Ticket Taker Relationship Specialty Start Date End Date Kanchan Wellington MD PCP - General Internal Medicine 08/29/18 Gentry Robles MD Specialist Internal Medicine 10/12/23 documented as of this encounter
--- OUTSIDE RECORDS SUMMARY | 2025-11-22 09:42 | XMS_ITS | Encounter Summary ---
Author Organization [facility] [employer] [facility] Prior to 09/01/2024 Address [address] [place] [address] Care Team Providers Care Golf Club Assembler Name Role Phone Kanchan Wellington MD Primary Care Provider Gentry Ayala MD Unavailable Un available Encounter Details Date Type Department Care Team Description 02/06/2021 Chemical Maker Report Medical Records [address] [place] [address] Janes Uribe MD Social History Tobacco Use [...] on filedocumented in this encounter Care Teams Golf Club Assembler Relationship Specialty Start Date End Date Kanchan Wellington MD PCP - General Internal Medicine 08/29/18 Gentry Robles MD Specialist Internal Medicine 10/12/23 documented as of this encounter
--- OUTSIDE RECORDS SUMMARY | 2025-11-22 09:42 | XMS_ITS | Encounter Summary ---
Author Organization [facility] [employer] [facility] Prior to 09/01/2024 Address [address] [place] [address] Care Team Providers Care Manager Rental Name Role Phone Kanchan Wellington MD Primary Care Provider Gentry Ayala MD Unavailable Un available Encounter Details Date Type Department Care Team Description 11/10/2019 Release of Information Medical Records [address] [place] [address] Abstract, Provider Social History Tobacco Use Types Packs/Day Years Used Date Smoking Tobacco: Former Cigarettes 0.5 25 1 993 - 2019 Cigars Smokeless Tobacco: Never Comments:1 cigar daily Alcohol Use Standard Drinks/Week Comments No 0 [...] on filedocumented in this encounter Care Teams Manager Rental Relationship Specialty Start Date End Date Kanchan Wellington MD PCP - General Internal Medicine 08/29/18 Gentry Robles MD Specialist Internal Medicine 10/12/23 documented as of this encounter
--- OUTSIDE RECORDS SUMMARY | 2025-11-22 09:42 | XMS_ITS | Encounter Summary ---
Author Organization [facility] [employer] [facility] Prior to 09/01/2024 Address [address] [place] [address] Care Team Providers Care Apartment Rental Agent Name Role Phone Naun Holt MD Primary Care Provider [phone] [facility], Pcp Primary Care Provider Kanchan Hughes MD Primary Care Provider Gentry Ayala MD Unavailable Un available Encounter Details Date Type Department Care Team Description 11/19/2011 Compactor Driver Report Medical Records [address] [place] [address] Mariela Ferrell MD Social History Tobacco Use Types Packs/Day Years Used Date Smoking Tobacco: Every Day Cigarettes 10 Last attempted to quit: 09/26/2009 Smokeless Tobacco: Never Comments:smokes 5-8 cigs angela [...] on filedocumented in this encounter Care Teams Apartment Rental Agent Relationship Specialty Start Date End Date Naun Holt MD [address] [place] [address] PCP - General 04/24/11 02/22/13 [facility], Pcp [address] [place] [address] PCP - General Internal Medicine 02/23/13 08/28/18 Kanchan Wellington MD [address] [place] [address] PCP - General Internal Medicine 08/29/18 Millicent-Gentry Rehman MD [address] [place] [address] Specialist Internal Medicine 10/12/23 documented as of this encounter
--- OUTSIDE RECORDS SUMMARY | 2025-11-22 09:42 | XMS_ITS | Encounter Summary ---
Author Organization [facility] [employer] [facility] Prior to 09/01/2024 Address [address] [place] [address] Care Team Providers Care High Raw Sugar Boiler Name Role Phone Naun Holt MD Primary Care Provider [phone] [facility], Pcp Primary Care Provider Kanchan Hughes MD Primary Care Provider Gentry Ayala MD Unavailable Un available Encounter Details Date Type Department Care Team Description 10/02/2011 Bobj Developer Report Medical Records [address] [place] [address] Joaquim Brizuela MD Social History Tobacco Use [...] on filedocumented in this encounter Care Teams High Raw Sugar Boiler Relationship Specialty Start Date End Date Naun Holt MD [address] [place] [address] PCP - General 04/24/11 02/22/13 [facility], Pcp [address] [place], [place] [phone] PCP - General Internal Medicine 02/23/13 08/28/18 Kanchan Wellington MD [address] [place], [place] [phone] PCP - General Internal Medicine 08/29/18 Millicent-Gentry Rehman MD [address] [place] [address] Specialist Internal Medicine 10/12/23 documented as of this encounter
--- OUTSIDE RECORDS SUMMARY | 2025-11-22 09:42 | XMS_ITS | Encounter Summary ---
Author Organization [facility] Prior to 09/01/2024 Address [address] [place] [address] Care Team Providers Care Carpet Yarn Winder Operator Name Role Phone Kanchan Wellington MD Primary Care Provider Gentry Ayala MD Unavailable Un available Reason for Visit * Reason Onset Date Comments Medication 11/08/2023 Encounter Details Date Type Department Care Team Description 11/08/2023 Telephone [address] [phone] Glendy Phillips MD [address] [place] [address] [place] [address] Medication Social History Tobacco Use Types Packs/Day Years [...] on file documented as of this encounter Miscellaneous Notes * Telephone Encounter - Meche Lauren - 11/08/2023 4:04 PM EST Patient had surgery today with Dr. Phillips and wanted to let provider know that her pharmacy ([facility]) did not receive any of the below medications: tylenol, ibuprofen, stool softener, laxatives, and anti nausea. She was able to warehouse picker oxycodone. documented in this encounter Plan of Treatment Not on file documented as of this encounter Visit Diagnoses Not on filedocumented in this encounter Care Teams Carpet Yarn Winder Operator Relationship Specialty Start Date End Date Kanchan Wellington MD PCP - General Internal Medicine 08/29/18 Subramonia-Gentry Rehman MD Specialist Internal Medicine 10/12/23 documented as of this encounter
--- OUTSIDE RECORDS SUMMARY | 2025-11-22 09:42 | XMS_ITS | Encounter Summary ---
Author Organization [facility] Prior to 09/01/2024 Address [address] [place] [address] Care Team Providers Care Flight Attendant Inflight Services Name Role Phone Kanchan Wellington MD Primary Care Provider Gentry Ayala MD Unavailable Un available Reason for Visit * Reason Onset Date Comments LAB WORK 10/08/2023 Encounter Details Date Type Department Care Team Description 10/08/2023 Telephone Urogynecology [address] [phone] Glendy Phillips MD [address] [place] [address] [place] [address] LAB WORK Social History Tobacco Use Types Packs/Day Years [...] encounter Miscellaneous Notes * Telephone Encounter - Padmini Raymond - 10/08/2023 4:03 PM EST Caller requesting call back from provider: Is the caller the patient? YES Reason for call back: Patient states she has surgery with Dr Phillips 11/08/23. Patient has a pre op 10/27/23. [facility]. They would like to know if patient needs lab work done before surgery. Please call patient Can leave a voice mail, patient is at work. Caller offered to speak with the nurse for assistance: YES Response: Patient offered to speak with nurse for assistance and patient agreed. Message forwarded to nurse. documented in this encounter Plan of Treatment Not on file documented as of this encounter Visit Diagnoses Not on filedocumented in this encounter Care Teams Flight Attendant Inflight Services Relationship Specialty Start Date End Date Kanchan Wellington MD PCP - General Internal Medicine 08/29/18 Subramonia-Gentry Rehman MD Specialist Internal Medicine 10/12/23 documented as of this encounter
--- OUTSIDE RECORDS SUMMARY | 2025-11-22 09:42 | XMS_ITS | Encounter Summary ---
Author Organization [facility] Prior to 09/01/2024 Address [address] [place] [address] Care Team Providers Care Feed Handler Name Role Phone Kanchan Wellington MD Primary Care Provider Gentry Ayala MD Unavailable Un available Reason for Visit * Reason Onset Date Comments radiology 08/17/2023 Encounter Details Date Type Department Care Team Description 08/17/2023 Telephone MRI - [place] [address] [place] [address] Fahad Nguyễn, DO [address] [address] radiology Social History Tobacco Use Types Packs/Day Years [...] file Not on file Not on file COVID-19 Exposure Response Date Recorded In the last 10 days, have yo u been in contact with someone who was confirmed or suspected to have Coronavirus/COVID-19? No / Unsure 08/18/2023 3:45 PM EDT documented as of this encounter Miscellaneous Notes * Telephone Encounter - Violeta zambrano Orient - 08/27/2023 11:55 AM EDT Patient just called the office inquiring about the MRI. If the patient can be scheduled for the MRIfor the first week of September (The week of September 06 that would be great. * Telephone Encounter - Hayley Troncoso - 08/17/2023 2:26 PM EDT Not a problem. When would you like us to scan her mid September? * Telephone Encounter - Fahad Nguyễn DO - 08/17/2023 2:13 PM EDT Its in there would like to have it done a few more weeks our from surgery. thanks * Telephone Encounter - Hayley Troncoso - 08/17/2023 8:12 AM EDT Good morning, Can you please finish office notes from yesterdays visit with this patient so I can obtain authorization for this mri abdomen? Thank you, [facility] documented in this encounter Plan of Treatment Not on file documented as of this encounter Visit Diagnoses Not on filedocumented in this encounter Care Teams Feed Handler Relationship Specialty Start Date End Date Kanchan Wellington MD PCP - General Internal Medicine 08/29/18 Millicent-Gentry Rehman MD Specialist Internal Medicine 10/12/23 documented as of this encounter
--- OUTSIDE RECORDS SUMMARY | 2025-11-22 09:42 | XMS_ITS | Encounter Summary ---
Author Organization [facility] [employer] [facility] Prior to 09/01/2024 Address [address] [place] [address] Care Team Providers Care Window And Siding Craftsman Name Role Phone Kanchan Wellington MD Primary Care Provider Gentry Ayala MD Unavailable Un available Encounter Details Date Type Department Care Team Description 02/13/2021 Chip Frier Report Medical Records [address] [place] [address] Janes Uribe MD Social History Tobacco Use [...] on filedocumented in this encounter Care Teams Window And Siding Craftsman Relationship Specialty Start Date End Date Kanchan Wellington MD PCP - General Internal Medicine 08/29/18 Gentry Robles MD Specialist Internal Medicine 10/12/23 documented as of this encounter
--- OUTSIDE RECORDS SUMMARY | 2025-11-22 09:42 | XMS_ITS | Encounter Summary ---
Author Organization [facility] Prior to 09/01/2024 Address [address] [place] [address] Care Team Providers Care Clinical Documentation Manager Name Role Phone Kanchan Wellington MD Primary Care Provider Gentry Ayala MD Unavailable Un available Encounter Details Date Type Department Care Team Description 09/19/2018 Transfer Records Medical Records [address] [place] [address] Abstract, Provider Social History Tobacco Use Types [...] on filedocumented in this encounter Care Teams Clinical Documentation Manager Relationship Specialty Start Date End Date Kanchan Wellington MD PCP - General Internal Medicine 08/29/18 Gentry Robles MD Specialist Internal Medicine 10/12/23 documented as of this encounter
--- OUTSIDE RECORDS SUMMARY | 2025-11-22 09:42 | XMS_ITS | Encounter Summary ---
Author Organization [facility] Prior to 09/01/2024 Address [address] [place] [address] Care Team Providers Care Electric Blasting Cap Assembler Name Role Phone Kanchan Wellington MD Primary Care Provider Gentry Ayala MD Unavailable Un available Encounter Details Date Type Department Care Team Description 08/10/2019 Orders Only Medical Records [address] [place] [address] Abstract, Provider Social History Tobacco Use Types Packs/Day Years Used Date Smoking Tobacco: Former Cigarettes 0.5 25 1 993 - 2019 Cigars Smokeless Tobacco: Never Alcohol Use Standard [...] on file documented as of this encounter Procedures Procedure Name Priority Date/Time Associated Diagnosis Comments OUTSIDE MAMMO Routine 08/09/2019 documented in this encounter Results * OUTSIDE MAMMO (08/09/2019) Kanchan Wellington MD RADIOLOGY documented in this encounter Visit Diagnoses Not on filedocumented in this encounter Care Teams Electric Blasting Cap Assembler Relationship Specialty Start Date End Date Kanchan Wellington MD PCP - General Internal Medicine 08/29/18 [place]-Gentry Rehman MD Specialist Internal Medicine 10/12/23 documented as of this encounter
--- OUTSIDE RECORDS SUMMARY | 2025-11-22 09:42 | XMS_ITS | Clinical Summary ---
Author Organization [facility] Prior to 03/31/25 Address [address] [place] [address] Care Team Providers Care Park Naturalist Name Role Phone Kanchan Wellington MD Primary Care Provider Allergies Active Allergy Reactions Criticality Noted Date [...] age to complete this topic Care Teams Park Naturalist Relationship Specialty Start Date End Date Kanchan Wellington MD [address] [place] [address] PCP - General Family Medicine 07/07/19
--- OUTSIDE RECORDS SUMMARY | 2025-11-22 09:42 | XMS_ITS | Encounter Summary ---
Author Organization [facility] Prior to 09/01/2024 Address [address] [place] [address] Care Team Providers Care Dredge Boat Engineer Name Role Phone Kanchan Wellington MD Primary Care Provider Gentry Ayala MD Unavailable Un available Encounter Details Date Type Department Care Team Description 08/05/2023 Orders Only Medical Records [address] [place] [address] Fahad Nguyễn, DO [address] [address] Social History Tobacco Use Types Packs/Day Years [...] suspected to have Coronavirus/COVID-19? No / Unsure 07/28/2023 10:57 AM EDT documented as of this encounter Plan of Treatment Not on file documented as of this encounter Procedures Procedure Name Priority Date/Time Associated Diagnosis Comments OUTSIDE PATHOLOGY Routine 08/03/2023 documented in this encounter Results * OUTSIDE PATHOLOGY (08/03/2023) Fahad Nguyễn DO OUTSIDE LAB documented in this encounter Visit Diagnoses Not on filedocumented in this encounter Care Teams Dredge Boat Engineer Relationship Specialty Start Date End Date Kanchan Wellington MD PCP - General Internal Medicine 08/29/18 [place]ram[place]-Gentry Rehman MD Specialist Internal Medicine 10/12/23 documented as of this encounter
--- OUTSIDE RECORDS SUMMARY | 2025-11-22 09:42 | XMS_ITS | Encounter Summary ---
Author Organization [facility] Prior to 09/01/2024 Address [address] [place] [address] Care Team Providers Care Tow Truck Driver Name Role Phone Kanchan Wellington MD Primary Care Provider Gentry Ayala MD Unavailable Un available Encounter Details Date Type Department Care Team Description 11/27/2020 Telephone Physiatry - [place] [address] [place] [address] Ricci May DO Social History Tobacco Use Types Packs/Day Years [...] Exposure Response Date Recorded In the last month, have you been in contact with someone who was confirmed or suspected to have Coronavirus / COVID-19? No / Unsure 11/04/2020 2:23 PM EST documented as of this encounter Miscellaneous Notes * Telephone Encounter - Rosalia Velez M.A. - 11/27/2020 9:16 AM EST Louise from [facility] called needs note faxed from Dr. May about conscious sedation. Note was previouslyfaxed. Will fax again. documented in this encounter Plan of Treatment Not on file documented as of this encounter Visit Diagnoses Not on filedocumented in this encounter Care Teams Tow Truck Driver Relationship Specialty Start Date End Date Kanchan Wellington MD PCP - General Internal Medicine 08/29/18 [place]ram[place]-Gentry Rehman MD Specialist Internal Medicine 10/12/23 documented as of this encounter
--- OUTSIDE RECORDS SUMMARY | 2025-11-22 09:42 | XMS_ITS | Clinical Summary ---
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 She contracts for safety and currently denies SI, HI. Asthma 11/04/2006 Irritable bowel syndrome 09/17/2006 Herpes simplex 11/05/2005 Overview (09/05/2024): 2002 HSV of skin - on L wrist Immunizations Immunization Administration Dates Next Due Influenza trivalent, 0.5mL, preservative free (Fluarix; FluLaval; Fluzone) ages 6mo and older (Afluria) 3 years and older 08/09/2013 Tdap Tetanus diptheria acell ular pertussis (Boostrix; Adacel) 7yo and older 05/07/2008 Surgical History Surgery Date Site/Laterality Comments VAGINAL DELIVERY PROCEDURE: [place] VAGINAL DELIVERY ONLY; COMMENT: x3 CERVICAL BIOPSY W/ LOOP ELECTRODE EXCISION PROCEDURE: CERVIAL LEEP CONE BIOPSY SPCMN PATHOLOGY EX; COMMENT: x3; abnormal cells TUBAL LIGATION 2004 PROCEDURE: HISTORICAL TUBAL LIGATION NASAL SEPTUM SURGERY 1996 PROCEDURE: AK SEPTOPLASTY/SUBMUCOUS RESECJ W/WO CARTILAGE GRF COLONOSCOPY 05/26/2006 PROCEDURE: AK COLONOSCOPY FLX DX W/COLLJ SPEC WHEN PFRMD; COMMENT: Normal TONSILLECTOMY PROCEDURE: HISTORICAL TONSILLECTOMY CHOLECYSTECTOMY PROCEDURE: AK LAPAROSCOPY SURG CHOLECYSTECTOMY HYSTERECTOMY Medical History Medical [...] oz) F Vag-S pont Livin g [facility]anna [facility] Delivery Location:[facility] 2003 40w 0d 3487 g (123 oz) [facility] 2004 40w 0d 3799 g (134 oz) F Vag-S pont Livin g Darnell Horner Delivery Location:[facility] Last Filed Vital Signs Vital Sign Reading [...] Health Maintenance Due Date Last Done Comments Colorectal Cancer Screening: Colonoscopy 1980 COVID-19 Vaccine (3 - Pfizer risk series) 04/27/2021 03/30/2021, 02/17/2021 Pneumococcal Vaccine: Pediatrics (0 to 5 Years) and At-Risk Patients (6 to 49 Years) (2 of 2 - PCV) 07/03/2021 07/03/2020, 08/10/2016 Medicare Annual Wellness Visit 10/10/2022 Social Influencers of Health Screening 10/10/2022 Hepatitis B Vaccines (2 of 3 - 19+ 3-dose series) 09/13/2024 08/16/2024 Influenza Vaccine (#1) 2025 , 07/03/2020, 08/10/2016, Additional history exists Depression Screening 11/01/2025 Breast Cancer Screening 04/25/2026 04/25/20 24, 04/20/2023, 04/15/2022, Additional history exists Cervical Cancer Screening: HPV 12/11/2029 12/11/2024, 11/30/2019 DTaP,Tdap,and Td Vaccines (3 - Td or Tdap) 07/03/2030 07/03/2020, 05/07/2008 RSV Immunization Adult Patients (1 - 1-dose 75+ series) 2054 HIV Screening Completed 11/30/2019 Hepatitis C Screening [...] Procedure Name Priority Date/Time Associated Diagnosis Comments HPV WITH REFLEX GENOTYPE Routine 12/11/2024 11:18 AM EST Screening for cervical cancer [facility] SCREENING DIGITAL Routine 04/25/2024 5:06 PM EDT Encounter for screening mammogram for malignant neoplasm of breast HEPATITIS C SCREENING Routine 11/30/2019 HIV SCREENING Routine 11/30/2019 from Last 3 Months or Most Recently Relevant to Health Maintenance Results * HPV with reflex genotype (12/11/2024 11:18 AM EST) HPV Negative Negative LAB MICROBIOLOGY METHOD 12/12/2024 3:50 PM EST [facility] Brushing/Spatula Cervix uteri structure / Unknown 12/11/2024 11:18 AM EST 12/12/2024 6:15 AM EST us Ruby Arriaga MD LAB MOLECULAR DIAGNOSTICS O RDERABLES Final Result [facility] [address] [place] [address], * [facility] SCREENING DIGITAL (04/25/2024 5:06 PM EDT) Anatomical Region Laterality Modality Mammography 04/25/2024 2:39 PM EDT Narrative 04/25/2024 5:[address] [facility] Diagnostic Imaging Department [address] [place] [address] Patient: YOLI MCGOWAN D.O.B./Age/Sex: 1980 - 43 - F Unit#: [id number] Location/Status: SPDIMAM/REG CLI Mnemonic/Ordering Site: [facility] Ordering Physician: GIGI WELLINGTON MD [facility] Screening Digital - 04/25/24 - 1507 Report Status:Signed EXAM: [facility] Screening Digital EXAM DATE AND TIME: 04/25/2024 3:08 PM HISTORY: Screening. COMPARISON: 04/19/23, 04/15/22, 11/25/20 TECHNIQUE: Bilateral digital breast tomosynthesis was performed in the CC and MLO projections. Computer aided detection with Hexagram 49 3D 3.1 was employed. TISSUE DENSITY: a. [...] Procedure Note Agatha Xavier MD - 08/16/[address] [facility] Diagnostic Imaging Department [address] [place], [place] [id number] Patient: YOLI MCGOWAN /Age/Sex: 1980 - 43 - F Unit#: [id number] Location/Status: SPDIMAM/REG CLI Mnemonic/Ordering Site: [facility] Ordering Physician: GIGI WELLINGTON MD [facility] Screening Digital - 04/25/24 - 1507 Report Status:Signed EXAM: [facility] Screening Digital EXAM DATE AND TIME: 04/25/2024 3:08 PM HISTORY: Screening. COMPARISON: 04/19/23, 04/15/22, 11/25/20 TECHNIQUE: Bilateral digital breast tomosynthesis was performed in the CCand MLO projections. Computer aided detection with Hexagram 49 3D 3.1was employed. TISSUE DENSITY: a. The [...] MD Dic Date/Time: 04/25/241704 Sign date/Time: 04/25/241705 us Gigi Wellington MD IMG BI PROCEDURES Final Res ult * Hm HIV Screening (11/30/2019) HIV Screening Abstracted us Historical Provider HEALTH MAINTENANCE Final Result * Hepatitis C Screening (11/30/2019) Hepatitis C Screening Abstracted us Historical Provider HEALTH MAINTENANCE Final Result from Last 3 Months or Most Recently Relevant to Health Maintenance Insurance [facility] MEDICARE Member Subscriber Plan / Payer (Ef fective 2019-Present) Name:YOLI MCGOWAN Relation to Subscriber:Self Name:Yoli Mcgowan Payer ID:[id number] Group ID:[id number] Type:Not on file Address: [place] [address] [address] [phone] Advance Directives Documents on File Type Date Recorded Patient Technician Semiconductor Development Expl anation Health Care Decision (hx) 11/12/2023 HE ALTH CARE PROXY Health Care Decision (hx) 11/12/2023 HE ALTH CARE PROXY Care Teams Development Chemist Relationship Specialty Start Date End Date Gigi Wellington MD [address] [place] [id number] PCP - General Internal Medicine 10/08/24
--- OUTSIDE RECORDS SUMMARY | 2025-11-22 09:42 | XMS_ITS | Encounter Summary ---
Author Organization [employer] [facility] Prior to 09/01/2024 Address [address] [place] [address] Care Team Providers Care Automotive Drivability Technician Name Role Phone Naun Holt MD Primary Care Provider [phone] Michell Headley MD Primary Care Provider Unavailable Michell Headley MD Primary Care Provider Unavailable [facility] Primary Care Provider UnavailKanchan Sweeney MD Primary Care Provider Gentry Ayala MD Unavailable Un available Encounter Details Date Type Department Care Team Description 06/16/2005 Orders Only OBGYN - [place] [address] [place] [address] Gerson Horner MD SUPERVISION OF OTHER NORMAL (Primary Dx) Social History Tobacco Use Types Packs/Day Years Used Date Smoking Tobacco: Never Assessed Alcohol Habits Answer Date Recorded How often [...] as of this encounter Plan of Treatment Scheduled Orders Name Type Priority Associated Diagnoses Orde r Schedule VENIPUNCTURE Lab Routine Supervision Of Other Normal Ordered: 06/16/2005 documented as of this encounter Visit Diagnoses Diagnosis Supervision of other normal - Primary documented in this encounter Care Teams Automotive Drivability Technician Relationship Specialty Start Date End Date Naun Holt MD [address] [place] [address] PCP - General 04/24/11 02/22/13 [place]-Michell Alberto MD PCP - General 06/01/0604/23 [place]-Michell Alberto MD PCP - General 02/23/199805/24 [facility], Pcp PCP - General Internal Medicine 02/23/13 08/28/18 Kanchan Wellington MD PCP - General Internal Medicine 08/29/18 [place]-Gentry Rehman MD Specialist Internal Medicine 10/12/23 documented as of this encounter
--- OUTSIDE RECORDS SUMMARY | 2025-11-22 09:42 | XMS_ITS | Encounter Summary ---
Author Organization [facility] Prior to 09/01/2024 Address [address] [place] [address] Care Team Providers Care Window Glass Installer Name Role Phone Naun Holt MD Primary Care Provider [phone] Michell Headley MD Primary Care Provider Unavailable Michell Headley MD Primary Care Provider Unavailable [facility] Primary Care Provider UnavailKanchan Sweeney MD Primary Care Provider Gentry Ayala MD Unavailable Un available Encounter Details Date Type Department Care Team Description 07/27/2005 Orders Only Medical [address] [place], [place] [id number] Maria M Leary, RN DOCUMENT IMPROVEMENT [address] [place], [place] [phone] URINARY TRACT INFECTION, SITE NOT SPECIFIED (Primary Dx) Social History Tobacco Use Types [...] Diagnoses Orde r Schedule VENIPUNCTURE Lab Routine Urinary Tract Infection, Site Not Specified Ordered: 07/27/2005 documented as of this encounter Visit Diagnoses Diagnosis Urinary tract infection, site not specified- Primary documented in this encounter Care Teams Window Glass Installer Relationship Specialty Start Date End Date Naun Holt MD [address] [place] [id number] PCP - General 04/24/11 02/22/13 [place]-Michell Alberto MD PCP - General 06/01/0604/23 [place]-Michell Alberto MD PCP - General 02/23/199805/24 [facility], Pcp PCP - General Internal Medicine 02/23/13 08/28/18 Kanchan Wellington MD PCP - General Internal Medicine 08/29/18 [place]-Gentry Rehman MD Specialist Internal Medicine 10/12/23 documented as of this encounter
--- OUTSIDE RECORDS SUMMARY | 2025-11-22 09:42 | XMS_ITS | Encounter Summary ---
Author Organization [facility] Prior to 09/01/2024 Address [address] [place] [address] Care Team Providers Care Meat Stringer Name Role Phone Kanchan Wellington MD Primary Care Provider Gentry Ayala MD Unavailable Un available Reason for Visit * Reason Comments E-prescribe Rx Request Encounter Details Date Type Department Care Team Description 08/07/2019 Refill Adult Med - [place] [address] [place] [address] Kanchan Wellington MD E-prescribe Rx Request Social History Tobacco Use Types Packs/Day Years [...] encounter Miscellaneous Notes * Telephone Encounter - Yue Ashley R.N. - 08/08/2019 11:39 AM EDT Last OV 08/03/19 Next OV 10/10/19 * Telephone Encounter - Chiara Bahena - 08/07/2019 2:36 PM EDT Patient would like script to be: E-PRESCRIBED/FAXED TO PHARMACY WHEN WAS THE PATIENT'S LAST APPOINTMENT WITH THE PRESCRIBING PROVIDER? 08/03/19 Does patient have an upcoming appointment? Yes 10/10/19 (THE MEDICATION REQUESTED IS ON THE MED LIST ABOVE) All of the medications requested were on the CURRENT MEDS list Did you check the Pharmacy information above?: YES Patient wants: 30 -day supply Is this a mail order prescription request ? NO Patients current insurance carrier is: [place] / [place] / Product Type: [place]ARE [id number] documented in this encounter Plan of Treatment Not on file documented as of this encounter Visit Diagnoses Not on filedocumented in this encounter Care Teams Meat Stringer Relationship Specialty Start Date End Date Kanchan Wellington MD PCP - General Internal Medicine 08/29/18 Millic[place]-Gentry Rehman MD Specialist Internal Medicine 10/12/23 documented as of this encounter
--- OUTSIDE RECORDS SUMMARY | 2025-11-22 09:42 | XMS_ITS | Encounter Summary ---
Author Organization [facility] Prior to 09/01/2024 Address [address] [facility] [place] [address] Care Team Providers Care Dragline Operator Helper Name Role Phone Naun Holt MD Primary Care Provider [phone] [facility], Pcp Primary Care Provider Kanchan Hughes MD Primary Care Provider Gentry Ayala MD Unavailable Un available Encounter Details Date Type Department Care Team Description 05/27/2011 Director Of Pediatric Rehabilitation Report Medical Records [address] [place] [address] Patel Mccartney Social History Tobacco Use Types Packs/Day Years [...] on filedocumented in this encounter Care Teams Dragline Operator Helper Relationship Specialty Start Date End Date Naun Holt MD [address] [place] [address] PCP - General 04/24/11 02/22/13 [facility], Pcp [address] [place] [address] PCP - General Internal Medicine 02/23/13 08/28/18 Kanchan Wellington MD [address] [place] [address] PCP - General Internal Medicine 08/29/18 Millic[place]-Gentry Rehman MD [address] [place] [address] Specialist Internal Medicine 10/12/23 documented as of this encounter
== END 2025-09-21 00:01 ==
LOC: HO.XRAY
PROVIDERS: PCP Family Medicine; Visit Provider Physical Medicine & Rehabilitation
DX: M51.24 Other intervertebral disc displacement, thoracic region (principal)
CPT/HCPCS: 72072

== ENCOUNTER → 2025-09-21 11:50 | Outpatient (BNV) | payer OTHER, SELFPAY | PROVIDERS: PCP Family Medicine; Visit Provider Radiology Body Imaging | DX: M47.814 Spondylosis without myelopathy or radiculopathy, thoracic region (principal) | CPT/HCPCS: 72072 ==